=== PATIENT | female | born 1935 | race Two or more races ===

== ENCOUNTER 2023-05-01 02:06 | Inpatient (IN) | payer MEDICARE, OTHER ==
[~2023-05-01] VITALS: Ht 157.5 cm; Wt 64.0 kg
[2023-05-01 02:31] VITALS: PULSE 88; RESP 16; O2SAT 97
[2023-05-01 02:44] LABS: Basophils # (auto) 0 10 ^3/uL (0-0.2); Basophils % (auto) 0.3 % (0.0-2.0); Eosinophils # (auto) 0 10 ^3/uL (0-0.8); Eosinophils % (auto) 0.4 % (0.0-7.0); Hemoglobin 12.7 g/dL (12.2-16.2); Lymphocytes # (auto) 0.5 10 ^3/uL (0.4-5.4); Mean Corpuscular Hemoglobin 31.6 pg (28.0-32.0); Mean Corpuscular Hgb Conc. 32.6 g/dL (32.0-36.0); Mean Corpuscular Volume 96.9 fL (80.0-100.0); Monocytes # (auto) 0.8 10 ^3/uL (0-1.3); Monocytes % (auto) 7.6 % (0.0-12.0); Neutrophils # (auto) 9.3 10 ^3/uL (1.6-8.6); Neutrophils % (auto) 86.7 % (37.0-80.0); Red Blood Cells 4.03 10^6/uL (4.0-5.20); Red Cell Distribution Width 16.2 % (11.8-14.3); White Blood Cell 10.7 10^3/uL (4.4-10.8)
[2023-05-01 03:02] LABS: Alanine Aminotransferase 25 U/L (7-40); Albumin 3.5 g/dL (3.2-4.8); Alkaline Phosphatase 84 U/L (46-116); Anion Gap 5 (5-15); Aspartate Aminotransferase 30 U/L (13-40); BUN/Creatinine Ratio 37.8 (10.0-20.0); Bilirubin, Total 0.6 mg/dL (0.2-1.0); Blood Urea Nitrogen 28 mg/dL (9-23); Calcium 8.9 mg/dL (8.7-10.4); Carbon Dioxide 28 mmol/L (20-30); Chloride 111 mmol/L (98-107); Glucose 109 mg/dL (74-106); Sodium 144 mmol/L (136-145); Total Protein 5.6 g/dL (5.7-8.2)
[2023-05-01] MEDS: cefTRIAXone 1GM/50ML D5W 50 ML IV ONE (04:27)
[2023-05-01] MEDS ORDERED: MORPHINE SULFATE INJ 2 MG/ml SYRG IV PRN (05:00)
[2023-05-01] MEDS ORDERED: ONDANSETRON HCL 4 MG/2 ML VIAL IV PRN (05:00)
[2023-05-01] MEDS: LEVOTHYROXINE SODIUM 88 MCG TAB PO SCH (06:10)
[2023-05-01] MEDS: AZITHROMYCIN 500MG/ 250ML 250 ML IV SCH (06:10)
[2023-05-01] MEDS: LEVOTHYROXINE SODIUM 88 MCG TAB ONE (06:12)
[2023-05-01] MEDS: AZITHROMYCIN 500MG/ 250ML 250 ML IV ONE (06:12)
[2023-05-01] MEDS: FLEET ENEMA(ADULT) 135 ML PR ONE (06:42)
[2023-05-01 07:15] VITALS: PULSE 82; RESP 17; O2SAT 94
[2023-05-01] MEDS: ENOXAPARIN SOD 40 MG/0.4 ML SYRINGE SC SCH (10:00)
[2023-05-01] MEDS ORDERED: [UNRECOGNIZED DRUG - CODE] PO (10:13)
[2023-05-01] MEDS ORDERED: FLEETMIN PR (10:13)
[2023-05-01] MEDS ORDERED: SENN1TAB14 PO (10:13)
[2023-05-01] MEDS ORDERED: ATOR80TA PO (10:13)
[2023-05-01] MEDS ORDERED: CITA10TA8 PO (10:13)
[2023-05-01] MEDS ORDERED: APIX2.5T PO (10:13)
[2023-05-01] MEDS ORDERED: ONDA-155 PO (10:13)
[2023-05-01] MEDS ORDERED: FURO20TA3 PO (10:13)
[2023-05-01] MEDS ORDERED: ALBU108A5 IN (10:13)
[2023-05-01] MEDS ORDERED: DOCU-94 PO (10:13)
[2023-05-01] MEDS ORDERED: CRAN450T PO (10:13)
[2023-05-01] MEDS ORDERED: FAMO20TA10 PO (10:13)
[2023-05-01] MEDS ORDERED: ASCO500C5 PO (10:13)
[2023-05-01] MEDS ORDERED: BISA10SU45 RE (10:13)
[2023-05-01] MEDS ORDERED: MAGN400S25 PO (10:13)
[2023-05-01] MEDS ORDERED: FLUT0.05 NAS (10:13)
[2023-05-01] MEDS ORDERED: TAMS0.4C36 PO (10:13)
[2023-05-01] MEDS ORDERED: ACET-1881 PO (10:13)
[2023-05-01] MEDS ORDERED: ASPI325T4 PO (10:13)
[2023-05-01] MEDS ORDERED: FERR325T24 PO (10:13)
[2023-05-01] MEDS ORDERED: MELA1LIQ2 PO (10:13)
[2023-05-01] MEDS ORDERED: LEV100T PO (10:13)
[2023-05-01] MEDS ORDERED: LINA145C PO (10:13)
[2023-05-01] MEDS ORDERED: LACT10PA2 PO (10:13)
[2023-05-01] MEDS: CARVEDILOL 3.125 MG TAB PO SCH (11:22)
[2023-05-01] MEDS: LOSARTAN POTASSIUM 25 MG TAB PO SCH (11:23)
[2023-05-01 16:50] VITALS: BP 116/66; PULSE 88; RESP 20; TEMP 97.4; O2SAT 97
[2023-05-01 19:17] LABS: Urine Bacteria FEW /hpf (None Seen); Urine Blood 2+ /uL (Negative); Urine Clarity Clear (Clear); Urine Color Yellow (Yellow); Urine Mucus FEW (None Seen); Urine Protein, UAD TRACE (Negative); Urine Specific Gravity 1.024 (1.001-1.035); Urine WBC 6 /hpf (0 - 5)
[2023-05-01] MEDS: ATORVASTATIN 20 MG TAB PO SCH (21:50)
[2023-05-01] MEDS: APIXABAN 2.5 MG TAB PO SCH (21:51)
[2023-05-01] MEDS: DOCUSATE SOD 100 MG CAP PO SCH (21:51)
[2023-05-01 22:00] VITALS: BP 123/68; PULSE 85; RESP 17; TEMP 96.2; O2SAT 94
[2023-05-02] MEDS: cefTRIAXone 1GM/50ML D5W 50 ML IV SCH (04:22)
[2023-05-02 05:00] VITALS: BP 113/62; PULSE 82; RESP 17; TEMP 97.3; O2SAT 92
[2023-05-02 06:41] LABS: Basophils # (auto) 0 10 ^3/uL (0-0.2); Basophils % (auto) 0.6 % (0.0-2.0); Eosinophils # (auto) 0.3 10 ^3/uL (0-0.8); Eosinophils % (auto) 4.1 % (0.0-7.0); Hematocrit 36.2 % (36.0-46.0); Hemoglobin 11.6 g/dL (12.2-16.2); Lymphocytes # (auto) 1.3 10 ^3/uL (0.4-5.4); Mean Corpuscular Hemoglobin 31.3 pg (28.0-32.0); Mean Corpuscular Hgb Conc. 32.1 g/dL (32.0-36.0); Mean Corpuscular Volume 97.3 fL (80.0-100.0); Monocytes # (auto) 0.7 10 ^3/uL (0-1.3); Monocytes % (auto) 10.6 % (0.0-12.0); Neutrophils # (auto) 4.2 10 ^3/uL (1.6-8.6); Neutrophils % (auto) 64.7 % (37.0-80.0); Nucleated Red Blood Cells % 0.1 %; Red Blood Cells 3.72 10^6/uL (4.0-5.20); Red Cell Distribution Width 16.2 % (11.8-14.3); White Blood Cell 6.5 10^3/uL (4.4-10.8)
[2023-05-02 06:51] LABS: INR 1.07 (0.9-1.15); Partial Thromboplastin Time 27.1 SEC (24.5-34.5); Prothrombin Time 11.2 sec (9.3-11.8)
[2023-05-02 06:58] LABS: Chloride 112 mmol/L (98-107); Potassium 3.7 mmol/L (3.5-5.1); Sodium 143 mmol/L (136-145)
[2023-05-02 06:59] LABS: Anion Gap 4 (5-15); Calcium 8.7 mg/dL (8.5-10.1); Carbon Dioxide 27 mmol/L (20-30)
[2023-05-02 07:04] LABS: BUN/Creatinine Ratio 34.4 (10.0-20.0); Blood Urea Nitrogen 21 mg/dL (9-23); Glucose 90 mg/dL (74-106)
[2023-05-02 08:46] VITALS: BP 123/70; PULSE 74; RESP 20; TEMP 98; O2SAT 95
[2023-05-02] MEDS: CITALOPRAM HYDROBR 20 MG TAB PO SCH (10:31)
[2023-05-02 12:40] VITALS: BP 122/80; PULSE 69; RESP 20; TEMP 98; O2SAT 92
[2023-05-02] MEDS: HYDROcodone-ACET 5/325MG TAB PO PRN (20:33)
[2023-05-02 21:45] VITALS: BP 108/63; PULSE 73; RESP 20; TEMP 97.9; O2SAT 93
[2023-05-02] MEDS: QUEtiapine FUMARATE 25 MG TAB PO SCH (21:47)
[2023-05-02] MEDS ORDERED: DOXYCYCLINE 100 MG TAB/CAP PO SCH (22:00)
[2023-05-03 04:52] VITALS: BP 112/76; PULSE 75; RESP 20; TEMP 97.6; O2SAT 92
[2023-05-03 08:00] VITALS: BP 111/73; PULSE 62; RESP 20; TEMP 98; O2SAT 93
[2023-05-03 08:27] VITALS: BP 111/73; PULSE 62; RESP 20; TEMP 98; O2SAT 93
[2023-05-03] MEDS ORDERED: QUET1TAB11 PO (10:41)
[2023-05-03 12:28] VITALS: BP 111/73; PULSE 62; RESP 20; TEMP 98; O2SAT 93
[2023-05-03 13:09] VITALS: BP 106/63; PULSE 80; RESP 20; TEMP 97.9; O2SAT 93
[2023-05-03 16:42] VITALS: BP 105/69; PULSE 69; RESP 20; TEMP 98; O2SAT 91
[2023-05-03] MEDS: ACETAMINOPHEN 325 MG TAB PO PRN (18:37)
== END 2023-05-03 18:56 | disposition home or self-care (01) | DRG 563 ==
LOC: ER 02:06 → OVERFLOW 05:04 → WEST WING 08:44
PROVIDERS: ADMIT Nurse Practitioner; ATTEND Internal Medicine
DX: S42.142A Displaced fracture of glenoid cavity of scapula, left shoulder, initial encounter for closed fracture (principal); N39.0 Urinary tract infection, site not specified; I69.359 Hemiplegia and hemiparesis following cerebral infarction affecting unspecified side; I10 Essential (primary) hypertension; E03.9 Hypothyroidism, unspecified; E78.5 Hyperlipidemia, unspecified; W19.XXXA Unspecified fall, initial encounter; I48.91 Unspecified atrial fibrillation; K56.41 Fecal impaction; M19.012 Primary osteoarthritis, left shoulder; Y93.89 Activity, other specified; Y92.89 Other specified places as the place of occurrence of the external cause; Y99.9 Unspecified external cause status; Z79.899 Other long term (current) drug therapy; Z86.73 Personal history of transient ischemic attack (TIA), and cerebral infarction without residual deficits
CPT/HCPCS: 36415; 70450; 71045; 71250; 72125; 72170; 73030; 73502; 74176; 80048; 80053; 81001; 84443; 85025; 85610; 85730; 93005; 97110; 97163; 97530; G0378